=== PATIENT | male | born 1945 | race Caucasian/White ===

== ENCOUNTER 2019-09-30 14:13 | Emergency (ER) | payer MEDICARE, MEDICAID ==
[~2019-09-30] VITALS: Ht 180.3 cm; Wt 82.8 kg
[~2019-09-30 14:13] MED LIST: BRIM5DRO16 EACHEYE; CLON-527 PO; CLOP75TA35 PO; ESOM20CA PO; FINA5TAB11 PO; HYDR-3965 PO; INSU100V10 SQ; MYCO250C46 PO; NIFE90TA61 PO; OMEP-84 PO; PRAM1.5T7 PO; PRED5TAB PO; SIMV80TA2 PO; TACR0.5C20 PO; TACR1CAP28 PO; TIMO10DR12 OP; ZOLP5TAB8 PO
[2019-09-30 14:20] VITALS: BP 171/90
[2019-09-30] MEDS ORDERED: TETanus/Pertussis (Acell)/Diphther VAC/PF (Tdap-Adult) 0.5ml syringe IMVAC ONE (17:20)
[2019-09-30 17:27] LABS: BASOPHILS % (AUTO) 0.3 % (0-1); EOSINOPHILS % (AUTO) 0.3 % (0-6); HEMATOCRIT 41.4 % (42.0-52.0); HEMOGLOBIN 13.3 g/dl (14.0-17.9); LYMPHOCYTES # (AUTO) 0.8 X10'3 (1.1-4.8); LYMPHOCYTES % (AUTO) 12.3 % (21-51); MEAN CORPUSCULAR HEMOGLOBIN 27.1 PG (27.0-31.0); MEAN CORPUSCULAR VOLUME 84.8 FL (78-98); MEAN PLATELET VOLUME 9.2 FL (7.4-10.4); MONOCYTES # (AUTO) 0.3 X10'3 (0-0.9); MONOCYTES % (AUTO) 4.8 % (2-12); NEUTROPHILS # (AUTO) 5.5 X10'3 (1.8-7.7); NEUTROPHILS % (AUTO) 82.3 % (42-75); PLATELET COUNT 184 X10'3 (140-440); RED BLOOD COUNT 4.89 X10'6 (4.70-6.10); RED CELL DISTRIBUTION WIDTH 15.3 % (11.5-14.5); WHITE BLOOD COUNT 6.7 X10'3 (4.5-11.0)
[2019-09-30 17:37] LABS: ALANINE AMINOTRANSFERASE 23 U/L (12-78); ALBUMIN 3.8 G/DL (3.4-5.0); ALBUMIN/GLOBULIN RATIO 1.2 (1.1-1.5); ALKALINE PHOSPHATASE 48 IU/L (46-116); ANION GAP 7 (8-16); ASPARTATE AMINO TRANSFERASE 22 U/L (10-37); BILIRUBIN,TOTAL 0.3 MG/DL (0.1-1.0); BLOOD UREA NITROGEN 35 MG/DL (7-18); BUN/CREATININE RATIO 24.1 (5.4-32.0); CALCIUM 9.5 MG/DL (8.5-10.1); CHLORIDE 106 MMOL/L (99-107); CREATININE 1.45 MG/DL (0.60-1.10); GLUCOSE 160 MG/DL (70-104); POTASSIUM 4.8 MMOL/L (3.5-5.1); SODIUM 141 MMOL/L (135-145); TOTAL CARBON DIOXIDE 28.4 MMOL/L (24-32); eGFR 48 ML/MIN
[2019-09-30 17:41] LABS: TROPONIN I 0.04 NG/ML (0.0-0.05)
== END 2019-09-30 18:06 | disposition home or self-care (01) ==
LOC: ER 14:13
DX: S01.01XA Laceration without foreign body of scalp, initial encounter (principal); E86.0 Dehydration; R55 Syncope and collapse; Z86.73 Personal history of transient ischemic attack (TIA), and cerebral infarction without residual deficits; I25.10 Atherosclerotic heart disease of native coronary artery without angina pectoris; I50.9 Heart failure, unspecified; I11.0 Hypertensive heart disease with heart failure; E11.9 Type 2 diabetes mellitus without complications; Z98.890 Other specified postprocedural states; Z88.8 Allergy status to other drugs, medicaments and biological substances; Z79.4 Long term (current) use of insulin; Z79.899 Other long term (current) drug therapy; W19.XXXA Unspecified fall, initial encounter; Y93.89 Activity, other specified; Y92.098 Other place in other non-institutional residence as the place of occurrence of the external cause; Y99.8 Other external cause status
CPT/HCPCS: 12001; 36415; 70450; 71045; 72125; 80053; 84484; 85025; 90471; 90715; 93005; 99285

== ENCOUNTER 2021-04-21 14:23 | Outpatient (CLI) | payer MEDICARE, MEDICAID ==
[~2021-04-21 14:23] MED LIST changes: +CLOP75TA34 PO; -CLOP75TA35 PO; +TACR1CAP24 PO; -TACR1CAP28 PO
[2021-04-21 14:58] LABS: TOTAL HEMOGLOBIN 12.1 G/dl (14.0-18.0)
== END 2021-04-21 23:59 | disposition home or self-care (01) ==
LOC: RT 14:23
PROVIDERS: ATTEND Internal Medicine Cardiovascular Disease
DX: M85.88 Other specified disorders of bone density and structure, other site (principal); I70.0 Atherosclerosis of aorta; Z79.899 Other long term (current) drug therapy
CPT/HCPCS: 71046; 85018; 94010; 94727; 94729

== ENCOUNTER 2021-12-27 13:52 | Outpatient (CLI) | payer MEDICARE, MEDICAID | END 2021-12-27 23:59 | disposition home or self-care (01) | LOC: CARD DIAG 13:52 | PROVIDERS: ATTEND Internal Medicine Cardiovascular Disease | DX: I08.1 Rheumatic disorders of both mitral and tricuspid valves (principal); I50.22 Chronic systolic (congestive) heart failure; I48.91 Unspecified atrial fibrillation | CPT/HCPCS: 93306 ==